=== PATIENT | male | born 1960 | race African-American/Black ===

== ENCOUNTER 2018-07-02 13:04 | Emergency (ER) | payer OTHER ==
[2018-07-02 13:51] VITALS: TEMP 99; BMI 32.1
--- NOTE | 2018-07-02 14:36 | PDOC ---
History of Present Illness - General Chief Complaint: Shortness of Breath Stated Complaint: DIFFICULTY BREATHING - History of Present Illness Initial Comments: 07/02/18 14:35 58 yo male with pmh COPD vs Asthma, 01/04 exposure, presents with SOB and wheezing for a few days. He states that he has had some nasal congestion for a few days and today has noticed some pressure in his right ear. He has been having worsening cough in that time productive of yellow sputum. He also endorses feeling feverish today. He presented to urgent care who gave him steroid and breathing treatment and recommended that he come to the emergency room. He endorses requiring his nebulizer at home at least 2 sometimes 3 times per day. Past History - Past Medical History Allergies/Adverse Reactions: Allergies Allergy/AdvReac Type Severity Reaction Status Date / Time No Known Allergies Allergy Verified 07/02/18 15:19 Home Medications: Ambulatory Orders Albuterol Sulfate [Proair Hfa] 8.5 gm IH DAILY 07/02/18 Amoxicillin/Potassium Clav [Augmentin 875-125 Tablet] 1 each PO DAILY 07/02/18 Montelukast Sodium [Singulair] 10 mg PO DAILY 07/02/18 Prednisone 5 mg PO DAILY 07/02/18 Prednisone [Prednisone 50 MG TABLETS] 50 mg PO DAILY #4 tablet 07/02/18 Asthma: Yes COPD: Yes - Immunization History Immunization Up to Date: Yes - Suicide/Smoking/Psychosocial Hx Smoking History: Never smoked Hx Alcohol Use: No Drug/Substance Use Hx: No Review of Systems - Review of Systems Constitutional: Yes: Chills, Fever. No: Weakness HEENTM: Yes: Nose Congestion, Other (R ear fullness). No: Blurred Vision Respiratory: Yes: Cough, Shortness of Breath, SOB with Exertion, Wheezing, Productive cough (yellow) Cardiac (ROS): No: Chest Pain, Irregular Heart Rate ABD/GI: No: Abdominal Distended : No: Burning, Dysuria, Pain Musculoskeletal: No: Back Pain Neurological: No: Headache *Physical Exam - Vital Signs Last Vital Signs Temp Pulse Resp BP Pulse Ox 99 F 107 H 20 159/75 100 07/02/18 13:34 07/02/18 13:34 07/02/18 13:34 07/02/18 13:34 07/02/18 13:34 - Physical Exam Comments: 07/02/18 14:37 GEN: A&O, no acute distress HEENT: dry mucus membranes NECK: supple HEART: Tachycardic, no murmur noted LUNGS: Diffuse wheezing ABDOMEN: Soft, nontender EXTREMITIES: no peripheral edema, no calf tenderness Moderate Sedation - Procedure Monitoring Vital Signs: Procedure Monitoring Vital Signs Temperature 99 F 07/02/18 13:34 Pulse Rate 107 H 07/02/18 13:34 Respiratory Rate 20 07/02/18 13:34 Blood Pressure 159/75 07/02/18 13:34 O2 Sat by Pulse Oximetry (%) 100 07/02/18 13:34 ED Treatment Course - LABORATORY CBC & Chemistry Diagram: 07/02/18 15:14 07/02/18 15:14 Medical Decision Making - Medical Decision Making 07/02/18 14:56 58 yo male with PMH COPD, 01/04 exposure presents with SOB, wheezing, productive cough. presents from urgent care where he was given "breathing treatment and steroids" as per patient. CBC, CMP, Mg, Phos, CXR, DuoNebs 07/02/18 15:50 CXR unchanged from previous noted in 2010. Labs pending. Pt receiving Nebs, still with some wheezing and cough. 07/02/18 17:33 Pt clinically improved following DuoNebs, IV Mg 2gm, Phos repletion. though still with wheezes, pt requests to be discharged and states he will follow up with pulmonology. *DC/Admit/Observation/Transfer Diagnosis at time of Disposition: COPD (chronic obstructive pulmonary disease) - Discharge Dispostion Disposition: HOME Condition at time of disposition: Stable Decision to Admit order: No - Prescriptions Prescriptions: Prednisone [Prednisone 50 MG TABLETS] 50 mg PO DAILY #4 tablet - Referrals - Patient Instructions Printed Discharge Instructions: DI for Chronic Obstructive Pulmonary Disease Additional Instructions: You were seen in the ED for difficulty breathing, you were given breathing treatments and steroids which improved your breathing. You are medically stable for discharge at this time. You should be seen by a filer repairer within one week of discharge from the ER. The name of a filer repairer has been provided to you in your discharge packet. You are being prescribed steroids for 4 more days which have been sent to your pharmacy. You should take prednisone 50 mg daily until you run out. If you have any high fevers, worsening breathing, or any other concerning symptoms, you should be seen by your doctor or return to the emergency department. - Post Discharge Activity Forms/Work/School Notes: Back to Work
[2018-07-02 15:34] LABS: BASO % 0.8 % (0-2.0); EOS % 10.5 % (0-4.5); HEMATOCRIT 41.9 % (35.4-49); HEMOGLOBIN 14.6 GM/dL (11.7-16.9); LYMPH % 11.5 % (8-40); MCH 30.6 pg (25.7-33.7); MCHC 34.8 g/dl (32.0-35.9); MEAN CELL VOLUME 88.1 fl (80-96); MEAN PLT VOLUME 8.7 fl (7.5-11.1); MONO % 12.7 % (3.8-10.2); NEUT % 64.5 % (42.8-82.8); PLATELET COUNT 212 K/MM3 (134-434); RBC 4.76 M/mm3 (4.00-5.60); RDW 13.6 % (11.9-15.9); WHITE BLOOD COUNT 7.1 K/mm3 (4.0-10.0)
[2018-07-02] MEDS ORDERED: ALBUTEROL SO4 2.5/IPRATROPIUM 0.5 INH SOL 3 ML VIAL.NEB. NEB ONE ×4 (15:34→15:49)
[2018-07-02] MEDS ORDERED: MAGNESIUM SULF 50% (8.12 MEQ/2 ML-1 GM VIAL) IVPB ONE (15:35)
[2018-07-02] MEDS ORDERED: MAGNESIUM 1GM/D5W - 2 GM/200 ML IVPB IVPB ONE (15:35)
[2018-07-02 16:09] LABS: ALK PHOS 76 U/L (45-117); ANION GAP 6 MMOL/L (8-16); BILIRUBIN,TOTAL 0.5 mg/dL (0.2-1); BLOOD UREA NITROGEN 7 mg/dL (7-18); CALCIUM 8.6 mg/dL (8.5-10.1); CHLORIDE 104 mmol/L (98-107); CO2 28 mmol/L (21-32); GLUCOSE,RANDOM 94 mg/dL (74-106); PHOSPHOROUS 1.7 mg/dL (2.5-4.9); POTASSIUM 4.2 mmol/L (3.5-5.1); SGOT/AST 18 U/L (15-37); SGPT/ALT 31 U/L (13-61); SODIUM 138 mmol/L (136-145); TOT PROT 7.5 g/dl (6.4-8.2)
[2018-07-02] MEDS ORDERED: NAPH,MB-DB/K PH,MBDB POWDER PACKET PO ONE ×2 (16:19→16:24)
--- NOTE | 2018-07-02 17:30 | PDOC ---
Attending Attestation - Resident Resident Name: Quan Watters - ED Attending Attestation I have performed the following: I have examined & evaluated the patient, The case was reviewed & discussed with the resident, I agree w/resident's findings & plan, Exceptions are as noted - HPI HPI: 07/02/18 17:44 The patient is a 58 year old male with a PMH of COPD and 01/04 exposure who presents with acute on chronic shortness of breath, cough productive of yellow sputum for the past few days and notes right ear fullness today. Patient was seen at Urgent Care today and was giving steroids, a breathing treatment, and told to come to the ER for further evaluation after his O2 sat was 91%. Patient has been using nebs at home. Pt reports many months of SOB, and reports that cold symptoms often make the SOB worse. He reports a "sinus" infection 5 days ago which has since resolved likely set it off. Pt's reports that the pt receives a steroid shot at the clinic when his SOB acts up and he typically responds well to this. Pt states this SOB feels like his previous exacerbations. Pt has been referred to a pulmonoligst for evaluation of his chronic SOB but has not yet done so. Denies CP, LE edema, calf tenderness, fevers, chills. The patient denies headache and dizziness. Denies nausea, vomit, diarrhea and constipation. Denies dysuria, frequency, urgency and hematuria. Allergies: NKA Past surgical history: None reported. Social history: No reported alcohol, drug or cigarette use. - Physicial Exam PE: 07/02/18 17:49 GENERAL: Awake, alert, and fully oriented, in no acute distress EYES: PERRLA, EOMI, sclera anicteric, conjunctiva clear ENT: Oropharynx clear without exudates. Moist mucosa NECK: Normal ROM, supple, no lymphadenopathy, JVD, or masses LUNGS: Breath sounds equal, good air movement. Diffuse scattered wheezing, no crackles. No increased WOB HEART: Regular rate and rhythm, normal S1 and S2, no murmurs, rubs or gallops ABDOMEN: Soft, nontender, normoactive bowel sounds. No guarding, no rebound. No masses EXTREMITIES: Normal range of motion, no edema. No cords, erythema, or tenderness BACK: No midline spinal tenderness in cervical/thoracic/lumbar region NEUROLOGICAL: Normal speech, cranial nerves intact, equal strength and sensation b/l SKIN: Warm, Dry, normal turgor, no rashes or lesions noted. - Medical Decision Making 07/02/18 18:05 58yo M hx chronic SOB, presumed to be secondary to 01/04 exposure presents to the ED with acute on chronic SOB, cough, hypoxia and wheezing from urgent care. Pt received prednisone 60mg and breathing treatments at urgent care. Vitals initially with tachycardia to 107, however pt had just received breathing treatment. HR normalized to 92 on my evaluation. Exam with scattered wheezing but pt states he is feeling much better. We continued breathing treatments here and added Mg 2G. Labs including troponin neg. EKG with no CELESTE. CXR clear on my read. On re-evaluation, pt continuing to have scattered wheezing but feeling better Offered admission to pt in light of hypoxia earlier and continued wheezing but pt is adament on going home and following up with Dr. Astorga Ambulatory sat 96% Pt given strict return precautions with at bedside Advised to continue breathing treatments at home, also prescribed prednisone 50mg for next 4 days Pt expresses understanding of plan and return precautions He is clinically stable for DC home I discussed the physical exam findings, ancillary test results and final diagnoses with the patient. I answered all of the patient's questions. The patient was satisfied with the care received and felt comfortable with the discharge plan and treatment plan. The patient will call their primary care physician within 24 hours to arrange follow-up and will return to the Emergency Department with any new, persistent or worsening symptoms. Heart Score/ECG Review #1 07/02/18 18:05 EKG read and interpreted by me. NSR, rate 100. Incomplete RBBB.
[2018-07-02 17:57] VITALS: BP 141/96; PULSE 103
--- NOTE | 2018-07-03 11:50 | EKG ---
Test Reason : Blood Pressure : / mmHG Vent. Rate : 100 BPM Atrial Rate : 100 BPM P-R Int : 128 ms QRS Dur : 092 ms QT Int : 328 ms P-R-T Axes : 061 062 003 degrees QTc Int : 423 ms NORMAL SINUS RHYTHM INCOMPLETE RIGHT BUNDLE BRANCH BLOCK BORDERLINE ECG NO PREVIOUS ECGS AVAILABLE Confirmed by MIK SUTHERLAND, FLORA ([id number]) on 07/03/2018 11:50:26 AM Referred By: Confirmed By:FLORA HOUSER MD
== END 2018-07-02 18:00 | disposition home or self-care (01) ==
LOC: JER 13:04
PROC: 3E0F7GC Introduction of Other Therapeutic Substance into Respiratory Tract, Via Natural or Artificial Opening (ICD-10-PCS; principal; 2018-07-02)
PROC: 3E0F7GC Introduction of Other Therapeutic Substance into Respiratory Tract, Via Natural or Artificial Opening (ICD-10-PCS; 2018-07-02)
PROC: 3E033GC Introduction of Other Therapeutic Substance into Peripheral Vein, Percutaneous Approach (ICD-10-PCS; 2018-07-02)
DX: J44.9 Chronic obstructive pulmonary disease, unspecified (principal); Z57.5 Occupational exposure to toxic agents in other industries
CPT/HCPCS: 36415; 71045-TC-FY; 80053; 82550; 82553; 83735; 84100; 84484; 85025; 87804; 93005; 93010; 99283-25

== ENCOUNTER 2022-09-06 19:30 | Emergency (ER) | payer OTHER ==
[2022-09-06 19:36] VITALS: BP 160/90; PULSE 91; RESP 18; TEMP 98.4; BMI 32.3
[2022-09-06 20:48] LABS: PH,URINE 5.5 (5.0-8.0); URINE APPEARANCE CLEAR; URINE BILIRUBIN NEGATIVE (NEGATIVE); URINE COLOR YELLOW; URINE GLUCOSE (UA) NEGATIVE (NEGATIVE); URINE KETONE NEGATIVE (NEGATIVE); URINE LEUK ESTERASE NEGATIVE (NEGATIVE); URINE NITRITE NEGATIVE (NEGATIVE); URINE PROTEIN NEGATIVE (NEGATIVE); URINE UROBILINOGEN 0.2 mg/dL (0.2-1.0)
[2022-09-06 20:51] LABS: BASO % 0.2 % (0-2.0); EOS % 0.1 % (0-4.5); HEMATOCRIT 34.8 % (35.4-49); HEMOGLOBIN 11.5 GM/dL (11.7-16.9); LYMPH % 7.3 % (8-40); MCH 27.1 pg (25.7-33.7); MCHC 33.2 g/dl (32.0-35.9); MEAN CELL VOLUME 81.7 fl (80-96); MEAN PLT VOLUME 8.6 fl (7.5-11.1); NEUT % 84.4 % (42.8-82.8); PLATELET COUNT 212 10^3/uL (134-434); RBC 4.26 M/mm3 (4.00-5.60); RDW 15.1 % (11.9-15.9); WHITE BLOOD COUNT 8.4 K/mm3 (4.0-10.0)
[2022-09-06 21:09] LABS: POTASSIUM 4.5 mmol/L (3.5-5.1)
[2022-09-06 21:11] LABS: BLOOD UREA NITROGEN 15.6 mg/dL (7-18); CALCIUM 9.4 mg/dL (8.5-10.1)
[2022-09-06 21:12] LABS: ALBUMIN 3.9 g/dl (3.4-5.0)
[2022-09-06 21:15] LABS: CREATININE 1.4 mg/dL (0.55-1.3)
[2022-09-06 21:16] LABS: BILIRUBIN,TOTAL 0.6 mg/dL (0.2-1); TOT PROT 7.3 g/dl (6.4-8.2)
== END 2022-09-06 22:11 | disposition home or self-care (01) ==
LOC: JER 19:30
DX: R33.9 Retention of urine, unspecified (principal)
CPT/HCPCS: 36415; 80053; 81003; 85025; 87086; 99283-25